=== PATIENT | female | born 1975 | race Caucasian/White ===

== ENCOUNTER 2019-09-17 09:31 | Emergency (ER) | payer OTHER ==
[2019-09-17 10:00] VITALS: BMI 24.0
--- NOTE | 2019-09-17 10:41 | PDOC ---
History of Present Illness - General Chief Complaint: Cold Symptoms Stated Complaint: COLD SYMPTOMS Time Seen by Provider: 09/17/19 10:33 History Source: Patient Exam Limitations: No Limitations - History of Present Illness Initial Comments: Marilyn Holland is a 44 yo healthy female w a hx of anemia who presents to the [facility] er with 2 days watery diarrhea, chills, body aches, profuse diaphoresis, and anorexia stating she has not had a desire to eat since Monday. She states she has been drinking vigorously to stay hydrated and she thinks the excess water she is drinking is why she is having diarrhea. [facility]. Patient states she had no abdominal pain at any point. She hadd 3 episodes of diarrhea yesterday, and two episodes today, all described as clear in color. Took dayquil at 1 yesterday, then nyquil at ten yesterday. 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 Endorses nausea, but denies emesis. Denies blood in stool, denies recent freshwater exposure, denies recent travel out of country, denies fevers, chest pain, SOB, difficulty breathing, recent surgeries. PCP: Antonieta Lei PSH: None reported Allergies: NKA, NKDA Social Hx: Denies current smoking, drinking, or other substance usage. Past History - Past Medical History Allergies/Adverse Reactions: Allergies Allergy/AdvReac Type Severity Reaction Status Date / Time No Known Allergies Allergy Verified 09/17/19 09:57 Home Medications: Ambulatory Orders NK [No Known Home Medication] 09/17/19 COPD: No Other medical history: denies - Psycho Social/Smoking Cessation Hx Smoking Status: Yes Smoking History: Never smoked Number of Cigarettes Smoked Daily: 10 Hx Alcohol Use: No Drug/Substance Use Hx: No Review of Systems - Review of Systems Able to Perform ROS?: Yes Comments:: CONSTITUTIONAL: Present: fevers, chills, fatigue, diaphoresis EYES: Absent: visual changes ENT: Absent: ear pain, no sore throat CARDIOVASCULAR: Absent: chest pain, no palpitations RESPIRATORY: Absent: cough, no SOB GI: Present: nausea, diarrhea Absent: abdominal pain, no vomiting, no constipation GENITOURINARY: Absent: dysuria, no frequency, no hematuria MUSKULOSKELETAL: Absent: back pain, no arthralgia, no myalgia SKIN: Absent: rash NEURO: Absent: headache *Physical Exam - Vital Signs Last Vital Signs Temp Pulse Resp BP Pulse Ox 98.9 F 107 H 16 114/83 100 09/17/19 09:57 09/17/19 09:57 09/17/19 09:57 09/17/19 09:57 09/17/19 09:57 - Physical Exam GENERAL: Diaphoretic. Well-appearing, well-nourished. No apparent distress. HEENT: Normocephalic, atraumatic. PERRL, EOM intact. CARDIOVASCULAR: Tachycardic rate. Normal S1, S2. Regular rhythm. PULMONARY: No evidence of respiratory distress. Lungs clear to auscultation bilaterally. No wheezing, rales or rhonchi. ABDOMEN: There is no abdominal tenderness. Hyperactive bowel sounds. Soft, non-distended , non-tender. No rebound or guarding. EXTREMITIES: Normal ROM in all four extremities. No gross deformities. SKIN: Warm, diaphoretic. No rash NEUROLOGICAL: No focal neurological deficits. ED Treatment Course - LABORATORY CBC & Chemistry Diagram: 09/17/19 11:00 09/17/19 11:00 Medical Decision Making - Medical Decision Making Marilyn Holland is a 44 yo healthy female w a hx of anemia who presents to the [facility] er with 2 days watery diarrhea, chills, body aches, profuse diaphoresis, and anorexia stating she has not had a desire to eat since Monday. She states she has been drinking vigorously to stay hydrated and she thinks the excess water she is drinking is why she is having diarrhea. Travelled last week to [facility] in [facility]. Patient states she had no abdominal pain at any point. She hadd 3 episodes of diarrhea yesterday, and two episodes today, all described as clear in color. Took dayquil at 1 yesterday, then nyquil at ten yesterday. 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 Endorses nausea, but denies emesis. Vital Signs Temp Pulse Resp BP Pulse Ox 98.9 F 107 H 16 114/83 100 09/17/19 09:57 09/17/19 09:57 09/17/19 09:57 09/17/19 09:57 09/17/19 09:57 DDx IBNLT: Viral gastroenteritis, dehydration, electrolyte/metabolic disturbance , anemia, UTI Plan: Labs, IV hydration, EKG, anti-emetics, supportive care, PO trial, re- assess Influenza: Negative Labs: Unremarkable EKG: NS rate of 73, narrow complexes, normal axis, no hypertrophy, no ST elevations or depressions, Non-specific T wave abnormality, no ST elevations or depressions, QTc 462, [place] 164 PO trial: Patient eating and drinking and drinking at bedside. Requesting for more food. Re-assessment: Patient feels well and is requesting to be discharged Disposition: Home with PCP fu - Return precautions. Discharge - Discharge Information Problems reviewed: Yes Clinical Impression/Diagnosis: Watery diarrhea Condition: Improved Disposition: HOME - Admission No - Follow up/Referral Referrals: Antonieta Lei NP [Primary Care Provider] - - Patient Discharge Instructions Patient Printed Discharge Instructions: Diarrhea (Alternative Therapy), Diarrhea Additional Instructions: You came into the ER with watery diarrhea. We believe you have a virus. It is very important to stay hydrated. Drink plenty of fluids. Make sure your are eating and drinking. Please call your doctor and schedule a follow up appointment in the next 3 to 5 days. Come back to the ER immediately with any new or worsening concerns especially if you feel dehydrated. Thank you for coming to the [facility] ER. We hope you feel better soon! Print Language: FAROESE - Post Discharge Activity Work/Back to School Note: Back to Work
[2019-09-17] MEDS ORDERED: SODIUM CHLORIDE 1,000 ML IV STA (10:47)
[2019-09-17] MEDS ORDERED: ACETAMINOPHEN 1000 MG/100 ML VIAL (NON FORMULARY) IVPB ONE (10:47)
[2019-09-17] MEDS ORDERED: ONDANSETRON 4 MG/2 ML VIAL IVPUSH ONE (10:47)
[2019-09-17] MEDS ORDERED: ACETAMINOPHEN INJECTION 100 ML IVPB ONE (10:52)
[2019-09-17] MEDS ORDERED: ONDANSETRON 4 MG/2 ML VIAL ONE (10:52)
--- NOTE | 2019-09-17 11:10 | PDOC ---
*Physical Exam - Vital Signs Last Vital Signs Temp Pulse Resp BP Pulse Ox 98.9 F 107 H 16 114/83 100 09/17/19 09:57 09/17/19 09:57 09/17/19 09:57 09/17/19 09:57 09/17/19 09:57 Heart Score/ECG Review - ECG Impressions Comment:: 09/17/19 16:07 HR 73, NSR, normal intervals, no BRNEDA/STD, TWI in lateral leads - no previous EKG in EMR ED Treatment Course - LABORATORY CBC & Chemistry Diagram: 09/17/19 11:00 09/17/19 11:00 - Medications Given in the ED: ED Medications Discontinued Medications Generic Name Dose Route Start Last Admin Trade Name Felicity PRN Reason Stop Dose Admin Acetaminophen 1,000 mg 09/17/19 10:47 09/17/19 11:07 Ofirmev Injection - IVPB 09/17/19 10:48 1,000 mg ONCE ONE Administration Ondansetron HCl 4 mg 09/17/19 10:47 09/17/19 11:07 Zofran Injection IVPUSH 09/17/19 10:48 4 mg ONCE ONE Administration Medical Decision Making - Medical Decision Making 09/17/19 11:27 Patient seen and evaluated as pre-attending w/Dr. Luong (PGY-2) 44 y/o female with a PMH of MAXIMUS presents w/2 days of subjective chills, watery non-bloody diarrhea and anorexia. Symptoms started suddenly Monday while patient was at home. Tolerating PO intake, no abdominal pain, chest pain, shortness of breath. Nausea w/o vomiting. Last PO intake was Monday evening, states she hasn't felt like eating since that time. 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 Initially tachycardic @ triage (HR 107) and on my exam (HR 118) - EKG non- ischemic as documented in EKG section of EMR shows HR 70's Will evaluate for Influenza A/B - more likely viral URI like picture. IV fluids , CBC/CMP, Reassess. 09/17/19 13:45 No leukocytosis UA clean VSS including no tachycardia during course of evaluation in ED; patient tolerating PO intake, ambulatory around unit Will discharge home with supportive care. Discharge - Discharge Information Problems reviewed: Yes Clinical Impression/Diagnosis: Watery diarrhea Condition: Improved Disposition: HOME - Follow up/Referral Referrals: Antonieta Lei NP [Primary Care Provider] - - Patient Discharge Instructions Patient Printed Discharge Instructions: Diarrhea (Alternative Therapy), Diarrhea Additional Instructions: You came into the ER with watery diarrhea. We believe you have a virus. It is very important to stay hydrated. Drink plenty of fluids. Make sure your are eating and drinking. Please call your doctor and schedule a follow up appointment in the next 3 to 5 days. Come back to the ER immediately with any new or worsening concerns especially if you feel dehydrated. Thank you for coming to the [facility] ER. We hope you feel better soon! Print Language: CYMRAES - Post Discharge Activity Work/Back to School Note: Back to Work
[2019-09-17 11:43] LABS: BASO % 0.7 % (0-2.0); EOS % 0.1 % (0-4.5); HEMATOCRIT 41.5 % (32.4-45.2); HEMOGLOBIN 13.3 GM/dL (10.7-15.3); LYMPH % 27.1 % (8-40); MCH 22.5 pg (25.7-33.7); MCHC 31.9 g/dl (32.0-36.0); MEAN CELL VOLUME 70.5 fl (80-96); MONO % 15.2 % (3.8-10.2); NEUT % 56.9 % (42.8-82.8); PLATELET COUNT 177 K/MM3 (134-434); RBC 5.88 M/mm3 (3.60-5.2); RDW 16.3 % (11.6-15.6); WHITE BLOOD COUNT 4.2 K/mm3 (4.0-10.0)
[2019-09-17] MEDS ORDERED: DEXTROSE 5%-NORMAL SALINE 1,000 ML IV ONE (11:51)
[2019-09-17 12:09] LABS: ALBUMIN 4.2 g/dl (3.4-5.0); BILIRUBIN,TOTAL 0.3 mg/dL (0.2-1); BLOOD UREA NITROGEN 13.6 mg/dL (7-18); CALCIUM 9.3 mg/dL (8.5-10.1); CREATININE 0.9 mg/dL (0.55-1.3); MAGNESIUM 2.3 mg/dL (1.8-2.4); TOT PROT 7.9 g/dl (6.4-8.2)
[2019-09-17] MEDS ORDERED: SODIUM CHLORIDE 0.9% 500 ML INFUS.BAG IV ONE (12:45)
[2019-09-17 13:41] VITALS: BP 114/59; PULSE 80; TEMP 99.1
[2019-09-17 13:46] LABS: EPI CELLS 3.4 /HPF (0-5/HPF); HYALINE CASTS 11 /lpf (0-8); PH,URINE 5.5 (5.0-8.0); URINE APPEARANCE CLOUDY; URINE BACTERIA 175.5 /hpf (NEGATIVE); URINE BILIRUBIN NEGATIVE (NEGATIVE); URINE COLOR YELLOW; URINE GLUCOSE (UA) NEGATIVE (NEGATIVE); URINE KETONE 1+ (NEGATIVE); URINE LEUK ESTERASE NEGATIVE (NEGATIVE); URINE NITRITE NEGATIVE (NEGATIVE); URINE PROTEIN 1+ (NEGATIVE); URINE RBC 8 /hpf (0-4); URINE UROBILINOGEN 0.2 mg/dL (0.2-1.0); URINE WBC 1 /hpf (0-5)
--- NOTE | 2019-09-17 14:55 | PDOC ---
Documentation entered by Ken Keller SCRIBE, acting as scribe for Anshu Cuevas MD. Anshu Cuevas MD: This documentation has been prepared by the Krishna vitale Daniel, SCRIBE, under my direction and personally reviewed by me in its entirety. I confirm that the documentation accurately reflects all work, treatment, procedures, and medical decision making performed by me. Attending Attestation - Resident Resident Name: Chago Luong - ED Attending Attestation I have performed the following: I have examined & evaluated the patient, The case was reviewed & discussed with the resident, I agree w/resident's findings & plan, Exceptions are as noted - HPI HPI: 09/17/19 11:11 The patient is a 44 year old female with a past medical history of anemia here today for evaluation of diarrhea. The patient reports that since monday (2019) she has had loose watery non bloody diarrhea, body aches, chills, nausea, and subjective fevers. She states that she hasnt eaten anything since monday night and has only had water to drink. Patient denies headache, lightheadedness, dizziness, focal weakness/numbness. Denies chest pain, shortness of breath. Denies vomiting, abdominal pain. Allergies: NKA PCP: Antonieta Lei - Physicial Exam PE: 09/17/19 11:11 GENERAL: Awake, alert, and fully oriented, in no acute distress. Non toxic. HEAD: No signs of trauma EYES: PERRLA, EOMI, sclera anicteric, conjunctiva clear ENT: Oropharynx clear without exudates. Moist mucosa NECK: Normal ROM, supple, no lymphadenopathy, JVD, or masses LUNGS: Breath sounds equal, clear to auscultation bilaterally. No wheezes, and no crackles HEART: Regular rate and rhythm, normal S1 and S2, no murmurs, rubs or gallops ABDOMEN: Soft, nontender, normoactive bowel sounds. No guarding, no rebound. No masses EXTREMITIES: Normal range of motion, no edema. No clubbing or cyanosis. No cords , erythema, or tenderness. WWP BACK: No midline spinal tenderness in cervical/thoracic/lumbar region NEUROLOGICAL: Normal speech, cranial nerves intact, equal strength and sensation b/l SKIN: Warm, Dry, normal turgor, no rashes or lesions noted. - Medical Decision Making 09/17/19 14:54 44yo F presents to the ED with likely viral syndrome Labs wnl Exam wnl, no abd ttp Initially tachycardic likely 2/2 dehydration, however responded well to fluids Pt is feeling better, clinically stbale for DC home with PMD f/u I discussed the physical exam findings, ancillary test results and final diagnoses with the patient. I answered all of the patient's questions. The patient was satisfied with the care received and felt comfortable with the discharge plan and treatment plan. The patient will call their primary care physician within 24 hours to arrange follow-up and will return to the Emergency Department with any new, persistent or worsening symptoms.
--- NOTE | 2019-09-18 11:22 | EKG ---
Test Reason : Blood Pressure : / mmHG Vent. Rate : 073 BPM Atrial Rate : 073 BPM P-R Int : 164 ms QRS Dur : 068 ms QT Int : 420 ms P-R-T Axes : 038 001 021 degrees QTc Int : 462 ms POOR DATA QUALITY, INTERPRETATION MAY BE ADVERSELY AFFECTED NORMAL SINUS RHYTHM NONSPECIFIC T WAVE ABNORMALITY ABNORMAL ECG NO PREVIOUS ECGS AVAILABLE Confirmed by Pradip Malone MD ([id number]) on 09/18/2019 11:22:19 AM Referred By: Confirmed By:Pradip Malone MD
== END 2019-09-17 14:45 | disposition home or self-care (01) ==
LOC: JER 09:31
PROC: 3E0337Z Introduction of Electrolytic and Water Balance Substance into Peripheral Vein, Percutaneous Approach (ICD-10-PCS; principal; 2019-09-17)
PROC: 3E033GC Introduction of Other Therapeutic Substance into Peripheral Vein, Percutaneous Approach (ICD-10-PCS; 2019-09-17)
PROC: 3E033NZ Introduction of Analgesics, Hypnotics, Sedatives into Peripheral Vein, Percutaneous Approach (ICD-10-PCS; 2019-09-17)
DX: B34.9 Viral infection, unspecified (principal); Z86.2 Personal history of diseases of the blood and blood-forming organs and certain disorders involving the immune mechanism
CPT/HCPCS: 36415; 80053; 81003; 83690; 83735; 84100; 84703; 85025; 87086; 87804; 93005; 93010; 96361; 96374; 96375; 99284-25; J0131; J7030

== ENCOUNTER 2020-08-04 13:37 | Emergency (ER) | payer OTHER ==
[2020-08-04 13:48] VITALS: BP 144/82; PULSE 104; TEMP 98.2; BMI 25.7
[2020-08-04] MEDS ORDERED: IBUPROFEN 600 MG TABLET (FP) PO ONE (16:53)
== END 2020-08-04 17:52 | disposition home or self-care (01) ==
LOC: JERFT 13:37
DX: M54.5 Low back pain (principal); S09.90XA Unspecified injury of head, initial encounter; Y04.8XXA Assault by other bodily force, initial encounter
CPT/HCPCS: 70450-TC; 70486-TC; 72100-TC-FY; 99285-25

== ENCOUNTER 2023-09-04 10:38 | Emergency (ER) | payer OTHER ==
[2023-09-04 11:16] VITALS: BP 154/90; RESP 16; TEMP 98.5; BMI 24.3
[2023-09-04 13:01] VITALS: PULSE 87
== END 2023-09-04 13:13 | disposition home or self-care (01) ==
LOC: JER 10:38 → JERFT 10:38
DX: R05.9 Cough, unspecified (principal); R09.81 Nasal congestion; U07.1 COVID-19
CPT/HCPCS: 0241U-QW; 99283-25